=== PATIENT | female | born 1960 | race Caucasian/White ===

== ENCOUNTER 2016-10-13 11:51 | Emergency (ER) | payer OTHER ==
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
--- NOTE | 2016-10-14 11:15 | Diagnostic Imaging Report ---
Right shoulder (3 views) HISTORY: Pain There is narrowing and hypertrophic bone formation about the acromioclavicular joint. No acute abnormalities. No fractures. No dislocation. IMPRESSION: 1. No acute abnormalities 2. Degenerative changes
--- NOTE | 2016-10-14 11:15 | Diagnostic Imaging Report ---
CT scan of the brain without contrast History: Headache Total DLP equals 537 CTDI equals 33.1 Axial sections were obtained from the base of the skull to the vertex. There is a normal ventricular system size. No focal parenchymal lesions are seen. No evidence of any mass effect or shift of midline structures. No extra-axial masses or abnormal fluid collections. Impression: Negative examination
--- NOTE | 2016-10-14 11:16 | Diagnostic Imaging Report ---
CT scan facial bones HISTORY: Pain Total DLP equals 274 CTDI equals 15.3 Axial sections were obtained through the facial bones. Additional coronal and sagittal reformatted images are provided. There is retention of normal bony margins about the orbits. No fractures. The zygomatic arches are intact. The pterygoid plates are intact. Nasal bones appear normal. Normal aeration of the paranasal sinuses. IMPRESSION: No acute abnormalities
--- NOTE | 2016-10-14 11:18 | Diagnostic Imaging Report ---
CT scan cervical spine HISTORY: Pain Total DLP equals 456 CTDI equals 25.0 Axial sections were obtained through the cervical spine. Additional sagittal and coronal reformatted images are provided. There are degenerative changes with hypertrophic spur formation noted about the endplates of C5, C6, C7. Spur formation results in mild extradural indentations at C5-6 and C6-7. Calcification is noted adjacent to the anterior margin of the C2-3 interspace that may be related to the disc annulus. No acute abnormalities. No fractures. The prevertebral soft tissues appear normal. IMPRESSION: 1. No acute abnormalities 2. Degenerative changes
== END 2016-10-13 15:05 | disposition home or self-care (01) ==
LOC: ER 11:51
DX: S03.8XXA Sprain of joints and ligaments of other parts of head, initial encounter (principal); S40.011A Contusion of right shoulder, initial encounter; G44.309 Post-traumatic headache, unspecified, not intractable; R42 Dizziness and giddiness; V49.50XA Passenger injured in collision with unspecified motor vehicles in traffic accident, initial encounter; Y93.89 Activity, other specified; Y92.488 Other paved roadways as the place of occurrence of the external cause; Y99.8 Other external cause status
CPT/HCPCS: 70450-TC; 70486-TC; 72125-TC; 73030-TC-RT; Z7502; Z7610